=== PATIENT | female | born 1940 | race Caucasian/White ===

== ENCOUNTER 2016-07-14 12:16 | Emergency (ER) | payer MEDICARE ==
[2016-07-14] MEDS ORDERED: Acetaminophen 500 MG TAB ONE (13:57)
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
== END 2016-07-14 15:50 | disposition home or self-care (01) ==
LOC: NAV ERS 12:16
DX: S16.1XXA Strain of muscle, fascia and tendon at neck level, initial encounter (principal); S00.83XA Contusion of other part of head, initial encounter; E03.9 Hypothyroidism, unspecified; E78.5 Hyperlipidemia, unspecified; K21.9 Gastro-esophageal reflux disease without esophagitis; Z79.899 Other long term (current) drug therapy; V89.2XXA Person injured in unspecified motor-vehicle accident, traffic, initial encounter
CPT/HCPCS: 72125